=== PATIENT | female | born 1950 | race Caucasian/White ===

== ENCOUNTER 2022-04-04 09:52 | Emergency (ER) | payer MEDICARE, MEDICAID ==
[~2022-04-04] VITALS: Ht 154.9 cm; Wt 56.8 kg
[~2022-04-04 09:52] MED LIST: ADDE10 PO; ALPR-709 PO; ESCI-8 PO; OXCA300T57 PO; OXYC-490 PO
[2022-04-04] MEDS ORDERED: ACETAMINOPHEN 325 MG TABLET PO ONE (10:30)
[2022-04-04 11:42] VITALS: BP 110/87
== END 2022-04-04 11:48 | disposition home or self-care (01) ==
LOC: EMS 10:01
DX: G89.29 Other chronic pain (principal); M25.551 Pain in right hip; F31.9 Bipolar disorder, unspecified; F12.90 Cannabis use, unspecified, uncomplicated; F17.210 Nicotine dependence, cigarettes, uncomplicated; J44.9 Chronic obstructive pulmonary disease, unspecified; G43.909 Migraine, unspecified, not intractable, without status migrainosus; Z87.19 Personal history of other diseases of the digestive system; Z90.710 Acquired absence of both cervix and uterus; Z90.49 Acquired absence of other specified parts of digestive tract; Z88.6 Allergy status to analgesic agent
CPT/HCPCS: 99283